=== PATIENT | female | born 1935 | race Caucasian/White ===

== ENCOUNTER 2016-06-07 18:32 | Emergency (ER) ==
[2016-06-07 18:32] VITALS: BMI 33.9
[2016-06-07 18:40] VITALS: BP 146/67; TEMP 99.1
[2016-06-07] MEDS ORDERED: DUONEB NEB STA (18:50)
--- NOTE | 2016-06-07 20:11 | ED.PDOC ---
General ED Provider: Dr. ES MONTILLA-ER Chief Complaint: Respiratory Complaint Stated Complaint: sheila been coughing up stuff for mos--its yellow --no fever, sob or hemoptysis Time Seen by Physician: 19:00 Mode of Arrival: Walk-In Information Source: Patient Exam Limitations: No limitations Primary Care Provider: CRISTÓBAL FORRESTER Nursing and Triage Documentation Reviewed and Agree: Yes Respiratory Complaint Exam - Respiratory Complaint/Exam Onset/Duration: 2mos Symptoms Are: Still present Timing: Intermittent Initial Severity: Mild Current Severity: Mild Location: Chest Character: Reports: Productive cough Aggravating: Reports: URI Alleviating: Reports: None Associated Signs and Symptoms: Denies: Rapid breathing, Dyspnea, Fever, Chills, Chest pain, Pleuritic chest pain, Wheezing, Hemoptysis, Dizziness, Calf pain, Calf swelling, URI, Nasal congestion, Hoarseness, Sinus discomfort, Vomiting, Sore throat, Weight loss, Decreased oral intake, Increased thirst, Increased appetite, Increased urination Related History: Reports: Similar episode History of Healthcare-Acquired Pneumonia: No Related Surgical History: Reports: None Pulmonary Embolism Risk Factors: None Status Asthmaticus Risk Factors: Reports: None Home Oxygen Use: No Recent Stress Test: No Recent Echo/LV Function: No Current Antibiotic Use: No Current Asthma Medication Use: No Respiratory Distress: None Inadequate Respiratory Effort: No Dysphagia Present: No Stridor Present: No JVD Present: No Accessory Muscle Use: No Retractions: Not Present Diminished Breath Sounds: No Sinus Tenderness: None Grunting Respirations: Yes Kussmaul Respirations: Yes Differential Diagnoses: Bronchitis Review of Systems - Review Of Systems Constitutional: Reports: No symptoms Eyes: Reports: No symptoms Ears, Nose, Mouth, Throat: Reports: No symptoms Respiratory: Reports: Cough Cardiac: Reports: No symptoms GI: Reports: No symptoms : Reports: No symptoms Musculoskeletal: Reports: No symptoms Skin: Reports: No symptoms Neurological: Reports: No symptoms Endocrine: Reports: No symptoms Hematologic/Lymphatic: Reports: No symptoms All Other Systems: Reviewed and Negative Past Medical History - Past Medical History Endocrine: Reports: DM 2 Cardiovascular: Reports: Hypertension Respiratory: Reports: None Hematological: Reports: None Gastrointestinal: Reports: None Genitourinary: Reports: None Neuro/Psych: Reports: CVA Musculoskeletal: Reports: Arthritis Cancer: Reports: None Last Menstrual Period: NONE - Surgical History General Surgical History: Reports: Hysterectomy, Cholecystectomy, Orthopedic ( Bilatearl Knee replacement, Right shoulder replacement ) - Family History Family History: Reports: Unknown - Social History Smoking Status: Never smoker Hx Substance Use: No Lives: With family Physical Exam - Physical Exam Appearance: Well-appearing, No pain distress, Well-nourished Eyes: BELLE ENT: Ears normal, Nose normal, Oropharynx normal Respiratory: Airway patent, Crackles Cardiovascular: RRR, Pulses normal, No rub, No murmur GI/: Soft, Nontender, No masses, Bowel sounds normal, No Organomegaly Musculoskeletal: Normal strength Skin: Warm, Dry, Normal color Neurological: Sensation intact, Motor intact, Reflexes intact, Cranial nerves intact, Alert, Oriented Psychiatric: Affect appropriate, Mood appropriate Critical Care Note - Critical Care Note Total Time (mins): 0 Course - Course Orders, Labs, Meds: Lab Review 06/07/16 18:50 D-Dimer 1.10 B-Natriuretic Peptide 203 H Orders Category Date Time Status NEBULIZER TREATMENT Stat CARDIO 06/07/16 18:50 Completed B-TYPE NATRIURETIC PEPTIDE Stat LAB 06/07/16 18:50 Completed D-DIMER Stat LAB 06/07/16 18:50 Completed Ipratropium/Albuterol Neb [Duoneb] MEDS 06/07/16 18:50 Discontinued 1 vial NEB ONCE STA Medications Discontinued Medications Generic Name Dose Route Start Last Admin Trade Name Freq PRN Reason Stop Dose Admin Albuterol/Ipratropium 1 vial 06/07/16 18:50 06/07/16 18:59 Duoneb NEB 06/07/16 18:51 1 vial ONCE STA Administration Vital Signs: Temp Pulse Resp BP Pulse Ox 06/07/16 18:32 99.1 F 87 20 146/67 H 96 Departure - Departure Time of Disposition: 20:10 Disposition: HOME SELF-CARE Discharge Problem: Bronchitis Instructions: Acute Bronchitis (ED) Condition: Good Pt referred to PMD for follow-up: Yes Additional Instructions: cipro 500mg bid x 7 days..use prednisone and mucinex give to you by dr forrester--f/ u dr forrester next week Allergies/Adverse Reactions: Allergies clindamycin Adverse Reaction (Verified 06/07/16 18:37) erythromycin base [Erythromycin Base] Adverse Reaction (Verified 06/07/16 18:37) meperidine HCl [From Demerol] Adverse Reaction (Verified 06/07/16 18:37) Penicillins Adverse Reaction (Verified 06/07/16 18:37) Home Medications: Ambulatory Orders Aspirin [Aspirin EC] 81 mg PO DAILY 07/05/13 Chromium Picolinate 200 mcg PO DAILY 07/05/13 Esomeprazole Magnesium [Nexium] 40 mg PO DAILY 07/05/13 Glimepiride [Amaryl] 4 mg PO DAILY 07/05/13 Metformin HCl [Metformin HCl ER] 500 mg PO BID 07/05/13 Potassium Chloride [Klor-Con 10] 1 tab PO DAILY 07/05/13 Sitagliptin Phosphate [Januvia] 50 mg PO DAILY 07/05/13 Solifenacin Succinate [Vesicare] 5 mg PO DAILY 07/05/13 Vit C/Vit E/Lutein/Min/[place]-3 [Ocuvite Softgel] 1 tab PO DAILY 07/05/13 Meclizine HCl [Antivert] 25 mg PO BID 12/28/14 Pravastatin Sodium [Pravachol] 20 mg PO BEDTIME 12/28/14 Telmisartan/Hydrochlorothiazid [Micardis Hct 80-12.5 mg Tablet] 1 tab PO DAILY 12/29/14 Verapamil HCl [Verapamil ER] 240 mg PO DAILYWM 12/29/14 Bisoprolol Fumarate/Hctz [Ziac 2.5-6.25 mg] 1 tab PO DAILY 06/07/16 Celecoxib [Celebrex] 240 mg PO PRN PRN 06/07/16 Cholecalciferol (Vitamin D3) [Vitamin D] 1,000 unit PO DAILY 06/07/16 Furosemide [Lasix Tab] 10 mg PO DAILY 06/07/16 Multivit-Min/FA/Lycopene/Lut [Centrum Silver Tablet] 1 each PO DAILY 06/07/16 [place]-3 Fatty Acids/Fish Oil [Fish Oil 1,000 mg Capsule] 2 each PO BID 06/07/16 Verapamil HCl [Verapamil ER] 120 mg PO DAILY 06/07/16 Disposition Discussed With: Patient
== END 2016-06-07 20:28 | disposition home or self-care (01) ==
LOC: ED 18:32
DX: J20.9 Acute bronchitis, unspecified (principal); E11.9 Type 2 diabetes mellitus without complications; I10 Essential (primary) hypertension; Z79.899 Other long term (current) drug therapy; Z86.73 Personal history of transient ischemic attack (TIA), and cerebral infarction without residual deficits
CPT/HCPCS: 36415; 83880; 85379; 94640; 99283

== ENCOUNTER 2016-06-18 08:37 | Outpatient (CLI) ==
--- NOTE | 2016-06-18 09:48 | DI ---
EXAM: Upper GI series HISTORY: Dysphasia COMPARISON: None FINDINGS: Upper GI series was performed using barium. Tertiary contractions are noted in the esopha donny. Esophageal caliber is normal. No filling defect is seen in the esophagus. Very small hiatal her reynold. Small reflux suggested when the patient changed positions. The stomach appears grossly normal w ithout mass lesion or ulcer. Small duodenal diverticulum. A 13 mm barium pill was administered and p assed freely into the stomach. IMPRESSION: Very small hiatal hernia. Small reflux suggested. Tertiary contractions,may relate to p resbyesophagus and/or dysmotility. A 13 mm barium pill was administered and passed freely into the s tomach. Small duodenal diverticulum.
== END 2016-06-18 08:38 ==
LOC: RAD 08:37
PROVIDERS: ATTEND Internal Medicine
DX: R13.10 Dysphagia, unspecified (principal)

== ENCOUNTER 2016-09-03 06:30 | Outpatient (CLI) ==
--- NOTE | 2016-09-03 08:54 | US ---
EXAM: Bilateral carotid artery Doppler History: Dizziness. Comparison: Carotid Doppler 04/16/2015 Technique: Multiple sonographic images through the bilateral internal carotid arteries were obtaine d. Color duplex Doppler was used to interrogate vascular flow. Findings: The right ICA peak systolic velocity is within normal limits measuring 1.0. Meters per second. The right ICA/cca PSV ratio is normal at 1.5. The right vertebral artery is patent and demonstrates ant egrade flow. Durbin scale images demonstrate mild to moderate plaque buildup within the right interna l carotid artery. The left ICA peak systolic velocities within normal limits measuring 0.8 meters per second. The lef t ICA/cca PSV ratio is normal at 1.1. The left vertebral artery is patent and demonstrates antegrad e flow. Durbin-scale images demonstrate mild to moderate plaque buildup within the left internal rice tid artery. Impression: No significant hemodynamic stenosis of the bilateral internal carotid arteries.
--- NOTE | 2016-09-03 12:19 | ECHO2D ---
Date of Exam: 09/03/16 Ordering Physician: CRISTÓBAL DOS SANTOS Reason for Echo: CARDIOMEGALY, SYSTOLIC MURMUR, HYPERTENSION, LVH M-Mode Normal Adult Results LV Dimensions Normal Adult Results AoV Opening excursions >1.6 >1.6 LVEDD-base- 3.5-5.8 5.0 Ao root dimensions 2.0-3.7 3.5 LVESD-base- 3.1-4.6 L. Atrium dimensions 1.9-3.8 4.6 Post. Wall thickness 0.8-1.1 1.2 IV septum (thickness) 0.7-1.2 1.3 Post. Wall excursion 0.72-1.3 NORMAL Septal motion NORMAL Systolic motion R. Ventricular cavity 1.5-2.0 NORMAL LVEF 60% 50% Paradoxical septal wall motion NORMAL 2-D : ENLARGED LEFT ATRIAL CAVITY--NORMAL VALVES, NORMAL LEFT VENTRICLE CAVITY, NO EFFUSION, NO THROMBUS M-MODE: MV: MILD ANNULUS CALCIFICATION AV: NORMAL TV: NORMAL PV: CHAMBER SIZE: ENLARGED LEFT ATRIAL CAVITY WALL MOTION: NORMAL PERICARDIUM: NORMAL INTERPRETATION: 1. LEFT VENTRICLE HYPERTROPHY 2. ENLARGED LEFT ATRIAL CAVITY 3. NORMAL LEFT VENTRICLE CONTRACTILITY 4. CALCIFIC MITRAL VALVE ANNULUS MTDD
== END 2016-09-03 06:31 | disposition home or self-care (01) ==
LOC: CAR 06:30
PROVIDERS: ATTEND Internal Medicine
DX: R42 Dizziness and giddiness (principal); R06.02 Shortness of breath; I10 Essential (primary) hypertension; I51.7 Cardiomegaly; R01.1 Cardiac murmur, unspecified
CPT/HCPCS: 93005; 93010

== ENCOUNTER 2017-06-23 14:56 | Inpatient (IN) ==
[2017-06-23] MEDS ORDERED: NITROSTAT SL PRN (17:04)
[2017-06-23] MEDS ORDERED: MORPHINE 4 MG/ML VIAL IVP PRN (17:04)
[2017-06-23] MEDS ORDERED: ATROPINE SULFATE PFS IVP PRN (17:04)
[2017-06-23] MEDS ORDERED: VISTARIL INJ IM PRN (17:04)
[2017-06-23] MEDS ORDERED: TYLENOL PO PRN (17:04)
[2017-06-23] MEDS: ZITHROMAX PO SCH (17:54)
[2017-06-23] MEDS: DEXTROSE 5%-1/2NS IV SOLUTION 1,000 ML IV SCH (17:54)
[2017-06-23] MEDS: SOLU-CORTEF 250 MG IVP SCH ×2 (17:55→20:53)
[2017-06-23 18:16] VITALS: BMI 34.2
[2017-06-23] MEDS: XOPENEX 1.25 MG NEB SCH ×2 (19:05→23:25)
[2017-06-23] MEDS ORDERED: PRAVACHOL ONE (20:41)
[2017-06-23] MEDS ORDERED: GLUCOPHAGE ONE (20:41)
[2017-06-23] MEDS: PRAVACHOL PO SCH (20:53)
[2017-06-23] MEDS: HUMULIN R SUBCUT PRN (20:54)
[2017-06-23] MEDS ORDERED: VERAPAMIL HCL 120 MG PO SCH (21:00)
[2017-06-23] MEDS ORDERED: NON-FORMULARY MEDICATION (Metformin Hcl [Metformin Hcl Er] 500 MG) PO SCH (21:00)
[2017-06-23] MEDS ORDERED: POTASSIUM GLUCONATE 600 MG PO SCH (21:00)
--- NOTE | 2017-06-24 03:29 | DI ---
EXAM: Portable chest HISTORY: Shortness of breath COMPARISON: Two-view chest 05/17/2016 FINDINGS: The cardiomediastinal silhouette is stable. The lungs are clear bilaterally. There is a right-sided reverse shoulder arthroplasty. IMPRESSION: No evidence of active pulmonary disease.
[2017-06-24] MEDS: SOLU-CORTEF 250 MG IVP SCH ×3 (04:13→20:20)
[2017-06-24] MEDS: XOPENEX 1.25 MG NEB SCH ×4 (05:12→23:55)
[2017-06-24] MEDS: DEXTROSE 5%-1/2NS IV SOLUTION 1,000 ML IV SCH ×2 (05:15→19:20)
[2017-06-24] MEDS: HUMULIN R SUBCUT PRN ×4 (05:15→20:20)
[2017-06-24] MEDS ORDERED: CALAN SR PO SCH ×2 (08:00→21:00)
[2017-06-24] MEDS ORDERED: NON-FORMULARY MEDICATION (Verapamil Hcl [Verapamil Er] 240 MG) PO SCH (08:00)
[2017-06-24] MEDS: ANTIVERT PO SCH (09:20)
[2017-06-24] MEDS: ASPIRIN EC PO SCH (09:20)
[2017-06-24] MEDS: GLUCOPHAGE PO SCH ×2 (09:21→16:42)
[2017-06-24] MEDS: HYDROCHLOROTHIAZIDE PO SCH (09:22)
[2017-06-24] MEDS: JANUVIA PO SCH (09:23)
[2017-06-24] MEDS: LASIX TAB PO SCH (09:23)
[2017-06-24] MEDS: MICARDIS PO SCH (09:24)
[2017-06-24] MEDS: ZITHROMAX PO SCH (09:25)
[2017-06-24] MEDS: POTASSIUM GLUCONATE 600 MG PO SCH ×2 (09:26→20:21)
--- NOTE | 2017-06-24 09:27 | PCM.PROG ---
Attending Provider: ATTENDING PROVIDER: Dr. CRISTÓBAL DOS SANTOS DATE OF SERVICE: 06/24/17 SUBJECTIVE: This 82 year old WHITE/ F was hospitalized 06/23/17 with shortness of breath, pleuritic type of pain, chest heaviness, pneumontiis of nearly 2 weeks duration improved. She is feeling better. Chest tightness less pronounced. REVIEW OF SYSTEMS: CONSTITUTIONAL: Fatigue. No night sweats. No malaise, lethargy. No fever or chills. HEENT: Eyes: No visual changes. No eye pain. No eye discharge. ENT: No runny nose. No epistaxis. No sinus pain. No odynophagia. No congestion. RESPIRATORY: Mild cough, no congestion. No hemoptysis. No shortness of breath. CARDIOVASCULAR: No angina symptoms. No CHF symptoms. No atypical chest pain for CAD. No palpitations. No orthopnea.. GASTROINTESTINAL: No abdominal pain. No nausea or vomiting. No diarrhea or constipation. No hematemesis. No hematochezia. GENITOURINARY: No urgency. No frequency. No dysuria. No hematuria. No obstructive symptoms. No discharge. No pain. No significant abnormal bleeding. MUSCULOSKELETAL: No musculoskeletal pain; no joint swelling. NEUROLOGICAL: Awake, alert, oriented to time, place and person. No headache. No neck pain. No syncope. No seizures. No dizziness. PSYCHIATRIC: Not anxious. No depression. No suicidal thoughts. No homicidal thoughts. SKIN: No rash. No lesions. No wounds. ENDOCRINE: No unexplained weight loss. No weight gain. HEMATOLOGIC/LYMPHATIC: No anemia. No purpura. No petechiae. No prolonged or excessive bleeding. No palpable lymph nodes. PHYSICAL EXAMINATION: GENERAL: The patient is awake, alert and oriented, lying in bed in no distress. VITAL SIGNS: Temperature 97.7 F, Pulse 88, Respiratory Rate 16, BP 135/67, Pulse Ox 99% HEENT: Head normocephalic, atraumatic. Eyes: Extraocular muscles are intact. Pupils are equal, round and reactive to light and accommodation. Ears: No lesions. Nose appeared normal. Throat: No exudate or erythema. NECK: Supple. No JVD, no carotid bruit. No lymphadenopathy or thyromegaly. LUNGS: Decreased breath sounds. Clear to auscultation. Percussion note normal. Chest symmetrical. HEART: S1, S2, no S3. No murmurs. No cyanosis or clubbing. No ascites. Pulses: Dorsalis pedis and posterior tibial pulses +1 to +2 both sides. ABDOMEN: Soft. Non-tender. Bowel sounds active. No CVA tenderness. No mass felt. EXTREMITIES: No edema. Full range of motion of all extremities, equal. NEUROLOGIC: No focal deficit. Cranial nerves II through XII are grossly intact. No headache, no double vision or headache. SKIN: Warm and dry. Intact. Turgor-better. LYMPHATIC: No palpable lymph nodes/no lymphedema. MUSCULOSKELETAL: Normal joints with no swelling. Muscle tone is normal. LAB REVIEW: 06/24/17 01:10 06/24/17 01:10 06/24/17 04:15: Urine Color Yellow, Urine Clarity Clear, Urine pH 6.0, Ur Specific [place] 1.020, Urine Protein Negative, Urine Glucose (UA) 2+, Urine Ketones Negative, Urine Blood Negative, Urine Nitrite Negative, Urine Bilirubin Negative, Urine Urobilinogen 0.2, Ur Leukocyte Esterase Negative, Urine Microscopic RBC Cancelled, Urine Microscopic WBC Cancelled, Ur Squamous Epith Cells Cancelled, Ur Transition Epith Cell Cancelled, Ur Renal Epithelial Cell Cancelled, Calcium Phosphate Cryst Cancelled, Calcium Oxalate Crystal Cancelled , Cystine Crystals Cancelled, Uric Acid Crystals Cancelled, Triple Phos Crystals Cancelled, Tyrosine Crystals Cancelled, Other Crystals Cancelled, Amorphous Sediment Cancelled, Urine Bacteria Cancelled, Fatty Casts Cancelled, Hyaline Casts Cancelled, Granular Casts Cancelled, Fine Granular Casts Cancelled , Coarse Granular Casts Cancelled, Waxy Casts Cancelled, RBC Casts Cancelled, Other Casts Cancelled, Urine Starch Cancelled, Urine Mucus Cancelled, Urine Trichomonas Cancelled, Urine Yeast Cancelled, Urine Sperm Cancelled, Ur Oval Fat Bodies Cancelled 06/24/17 01:10: Sodium 134 L, Potassium 4.0, Chloride 99, Carbon Dioxide 23, Anion Gap 16.0, BUN 24 H, Creatinine 1.03, Estimated GFR (MDRD) 51.00, BUN/ Creatinine Ratio 23.30, Glucose 305 H D, Calcium 8.8, Total Bilirubin 0.5, AST 26, ALT 29, Alkaline Phosphatase 51 L, Total Protein 6.2, Albumin 3.4, Globulin 2.8, Albumin/Globulin Ratio 1.21 06/24/17 01:10: WBC 4.47 L, RBC 3.98 L, Hgb 11.8 L, Hct 33.9 L, MCV 85.2, MCH 29.6, MCHC 34.8, RDW Coeff of Chuy 13.4, Plt Count 150, Immature Gran % (Auto) 1.3, Neut % (Auto) 80.0, Lymph % (Auto) 12.5, [place] % (Auto) 6.0, Eos % (Auto) 0.0, Baso % (Auto) 0.2, Immature Gran # (Auto) 0.1, Neut # 3.6, Lymph # 0.6, [place] # 0.3 L, Eos # 0.0, Baso # 0.0 06/24/17 01:10: Total Creatine Kinase 142, CK-MB (CK-2) 4.6 H, CK-MB (CK-2) % 3.58789, Troponin I 0.0110 06/23/17 17:33: WBC 6.65, RBC 4.27, Hgb 12.4, Hct 35.1 L, MCV 82.2, MCH 29.0, MCHC 35.3, RDW Coeff of Chuy 13.3, Plt Count 162, Immature Gran % (Auto) 0.3, Neut % (Auto) 77.8, Lymph % (Auto) 13.5, [place] % (Auto) 8.4, Eos % (Auto) 0.0, Baso % (Auto) 0.0, Immature Gran # (Auto) 0.0, Neut # 5.2, Lymph # 0.9, [place] # 0.6, Eos # 0.0, Baso # 0.0 06/23/17 17:33: Sodium 135 L, Potassium 4.2, Chloride 100, Carbon Dioxide 24, Anion Gap 15.2, BUN 24 H, Creatinine 1.06, Estimated GFR (MDRD) 49.00, BUN/ Creatinine Ratio 22.64, Glucose 209 H, Calcium 9.0, Total Bilirubin 0.6, AST 28 , ALT 30, Alkaline Phosphatase 51 L, Total Creatine Kinase 174, CK-MB (CK-2) 5.5 H*, CK-MB (CK-2) % 3.40483, Troponin I 0.0140, Total Protein 6.6, Albumin 3.6, Globulin 3.0, Albumin/Globulin Ratio 1.20 ASSESSMENT: 1. Flu type of symptoms with pleuritic pain, chest pain seems to be better. EKG - sinus rhythm no acute changes. PLAN: 1. A1C - blood sugar 305 likely from steroid effect 2. Continue steroids, antibiotics and nebs. 3. The patient is to have echo done to evaluate LV function. She has been complaining of shortness of breath for the past couple of months likely from sedentary lifestyle with flu type of symptoms off and on. Will evaluate LV function. 4. Zithromax p.o. Plan and coordination of the patient's care discussed in the presence of Software Development Manager and nurse. CONDITION: Stable SCRIBED BY: CASSIDY OCAMPO, Dye House Wheel Operator scribed while in presence of service performed by Dr. CRISTÓBAL DOS SANTOS on 06/24/17 ([id number])
[2017-06-24] MEDS ORDERED: CALAN SR PO ONE (13:00)
--- NOTE | 2017-06-24 15:29 | HP ---
DATE OF SERVICE: 06/23/17 REASON FOR HOSPITALIZATION/HISTORY OF PRESENT ILLNESS: Headache back, Chest feeling tight-coughing very litter dry/hacky. Pain with coughing. PAST MEDICAL HISTORY: Generalized Osteoarthritis Bilateral hip pain Systolic murmur Dysphagia Diabetes Mellitus type 2 Hypertension/LVH Obesity Dyslipidemia History of blood clots after surgery PAST SURGICAL HISTORY: Bladder with mesh Uterus Gallbladder Bilateral knee replacement Right shoulder REVIEW OF SYSTEMS: CONSTITUTIONAL: No fever, Fatigue. HEENT: Sinus drainage, no sore throat. RESPIRATORY: Cough, no congestion. CARDIOVASCULAR: Atypical chest pain for coronary artery disease. No angina, CHF symptoms, palpitations or shortness of breath. GASTROINTESTINAL: No melena or abdominal pain. No GERD. GENITOURINARY: No hematuria, no prostatism, no polyuria. Decreased appetite. AUTOMATION ANALYST: No blackout, no dizziness, Headache, no double vision. MUSCULOSKELETAL: Osteoarthritis pain, no joint swelling. ENDOCRINE: No weight loss, no weight gain. SKIN: Not dry, no rash. PSYCHIATRIC: Anxious, no depression, no suicidal thoughts, no homicidal thoughts. SOCIAL HISTORY: Marital Status: . Alcohol Usage: No. Tobacco Usage: No. FAMILY HISTORY: Father Mother Sister 1 MEDICATIONS: Metformin 500mg twice a day Telmisartan 80/12.5 PO daily Verapamil 240mg Am and 1/2 PM Januvia 100mg PO daily Lasix 20PO daily Glimepiride 4mg PO daily Ziac 25mg 1/2 daily PRN Pravastatin 20mg PO daily Nexium 40mg PO PM Fish oil 1000mg AM and PM Vitamins PO daily Aspirin 81mg PO daily Celebrex 200mg three times daily Antivert 25mg QAM PRN Z-Ramon Prednisone 10mg twice a day Myrbetriq 25mg PO QPM Potassium 600mg PO twice a day ALLERGIES: Clindamycin Erythromycin Meperidine Penicillins PHYSICAL EXAMINATION: V/S: Pulse 74, blood pressure 120/60, temperature 97.9 and pulse ox 98%. GENERAL APPEARANCE: Oriented times three. HEENT: Normal. Yellow sinus drainage. Pale. NECK: No JVP, no bruits. RESPIRATORY: Lungs are decreased breath sounds. CARDIOVASCULAR: S1, S2, no S3, I/ murmurs. No cyanosis, clubbing. No ascites. GI/ABDOMEN: Tenderness. Bowel sounds are active. EXTREMITIES: Edema, pulses +1, equal. AUTOMATION ANALYST: Deep tendon reflexes, sensory, motor and gait all normal. RECTAL: Dr. Cruz 01/27/PELVIC: Dr. Mares 10/31 Theresa Mammogram. ASSESSMENT: 1. Acute pneumonitis 2. Shortness of breath 3. Pleuritic pain 4. Chest tightness 5. Bilateral hip pain 6. Generalized osteoarthritis 7. Sciatica 8. Cardiomegaly 9. Systolic murmur 10.Dysphagia 11.Diabetes mellitus 12.Hypertension/LVH 13.Obesity 14.Dyslipidemia 15.Left knee replacement PLAN: 1. Routine telemetry orders 2. Chest x-ray 3. CBC/CMP daily 4. Solu-Cortef 125mg IV Q 8 hours 5. Zithromax 500mg PO daily x 3 days 6. Xopenex 1.25mg scheduled Q 6 hours 7. Oxygen PRN 8. Continue home medications 9. D5 1/2 normal saline @ 75cc an hour 10.Echo 2D M mode 11.Accu-checks with sliding scale ADDENDUM: On 06/23/17, admission, hemoglobin 12.4, hematocrit 35, WBC 6,000, normal differential. Creatinine 1, BUN 24. CK-MB 5.5 with CK 174 normal. Liver profile normal. Potassium normal. TIME SPENT: More than 70 minutes. MTDD
[2017-06-24] MEDS ORDERED: NON-FORMULARY MEDICATION (Esomeprazole Magnesium [Nexium] 40 MG) PO SCH (17:00)
[2017-06-24] MEDS ORDERED: NON-FORMULARY MEDICATION (Glimepiride [Amaryl] 4 MG) PO SCH (17:00)
[2017-06-24] MEDS ORDERED: MYRBETRIQ PO SCH (17:00)
[2017-06-24] MEDS ORDERED: ZIAC 2.5-6.25 MG PO SCH (17:00)
[2017-06-24] MEDS ORDERED: AMARYL PO SCH (17:00)
[2017-06-24] MEDS ORDERED: PROTONIX PO SCH (17:00)
[2017-06-24] MEDS: PRAVACHOL PO SCH (20:21)
[2017-06-25] MEDS: XOPENEX 1.25 MG NEB SCH ×2 (05:45→11:17)
[2017-06-25] MEDS: LASIX TAB PO SCH (05:53)
[2017-06-25] MEDS: SOLU-CORTEF 250 MG IVP SCH (05:54)
[2017-06-25] MEDS: HUMULIN R SUBCUT PRN (05:54)
[2017-06-25] MEDS ORDERED: CALAN SR PO SCH (08:00)
[2017-06-25] MEDS ORDERED: DECADRON 4 MG/ML SDV IM STA (08:09)
[2017-06-25] MEDS ORDERED: K-DUR PO STA (08:09)
[2017-06-25] MEDS: ANTIVERT PO SCH (09:07)
[2017-06-25] MEDS: ASPIRIN EC PO SCH (09:07)
[2017-06-25] MEDS: GLUCOPHAGE PO SCH (09:09)
[2017-06-25] MEDS: HYDROCHLOROTHIAZIDE PO SCH (09:10)
[2017-06-25] MEDS: JANUVIA PO SCH (09:10)
[2017-06-25] MEDS: MICARDIS PO SCH (09:11)
[2017-06-25] MEDS: ZITHROMAX PO SCH (09:12)
[2017-06-25] MEDS: POTASSIUM GLUCONATE 600 MG PO SCH (09:12)
[2017-06-25 10:03] VITALS: BP 153/75; TEMP 97.5
--- NOTE | 2017-06-25 10:24 | CM.DICTOOL ---
ADMISSION: 06/23/17 14:56 DISCHARGE: 2017 DATE OF SERVICE: 06/25/17 FINAL DIAGNOSIS ACUTE PNEUMONITIS INFLUENZA A PLEURITIC CHEST PAIN DIABETES, TYPE 2 HYPERTENSION DYSLIPIDEMIA GERD CKD, STAGE 2 RHEUMATOID ARTHRITIS BILATERAL TKR RIGHT SHOULDER REPLACEMENT CHOLECYSTECTOMY LAST VITALS Temp Pulse Resp BP Pulse Ox 97.9 F 70 18 144/89 H 96 06/25/17 05:38 06/25/17 05:38 06/25/17 05:38 06/25/17 05:38 06/25/17 05:38 ACTIVE HOME MEDICATIONS Aspirin (Aspirin Ec) 81 mg PO DAILYWM [facility] Last Admin: 06/25/17 09:07 Dose: 81 mg Chromium Picolinate 200 mcg PO Q PM Last Admin: Bisoprolol Fumarate/HCTZ (Ziac 2.5-6.25 Mg) 0.5 tab PO QPM [facility] Last Admin: 06/24/17 16:40 Dose: 0.5 tab Furosemide (Lasix Tab) 20 mg PO QDAC [facility] Last Admin: 06/25/17 05:53 Dose: 20 mg Glimepiride (Amaryl) 2 mg PO QPM [facility] Last Admin: 06/24/17 16:42 Dose: 2 mg Meclizine HCl (Antivert) 25 mg PO QAM [facility] Last Admin: 06/25/17 09:07 Dose: 25 mg Metformin HCl (Glucophage) 500 mg PO BIDWM [facility] Last Admin: 06/25/17 09:09 Dose: 500 mg Mirabegron (Myrbetriq) 25 mg PO QPM [facility] Last Admin: 06/24/17 16:41 Dose: 25 mg Non-Formulary Medication (Potassium Gluconate [Potassium]) 600 mg PO BID [facility] Last Admin: 06/25/17 09:12 Dose: Not Given Esomeprazole Magnesium (Nexium) 40 mg PO QPM [facility] Last Admin: 06/24/17 16:42 Dose: 40 mg Pravastatin Sodium (Pravachol) 20 mg PO BEDTIME [facility] Last Admin: 06/24/17 20:21 Dose: 20 mg Sitagliptin Phosphate (Januvia) 100 mg PO DAILY [facility] Last Admin: 06/25/17 09:10 Dose: 100 mg Telmisartan/Hydrochlorothiazide (Micardis-HCT 80-12.5)mg PO DAILY [facility] Last Admin: 06/25/17 09:11 Dose: 80 mg Verapamil HCl (Calan Sr) 120 mg PO BEDTIME [facility] Last Admin: 06/24/17 20:21 Dose: 120 mg Verapamil HCl (Calan Sr) 240 mg PO DAILYWM [facility] Last Admin: 06/25/17 09:07 Dose: 240 mg [place]-3 Fatty Acids/Fish Oil 1000 mg Capsule 1 BID Last Admin: Multi-Vitamin (Centrum Silver) 1 PO at Bedtime Last Admin: ALLERGIES clindamycin Adverse Reaction (Verified 06/07/16 18:37) erythromycin base [Erythromycin Base] Adverse Reaction (Verified 06/07/16 18:37) meperidine HCl [From Demerol] Adverse Reaction (Verified 06/07/16 18:37) Penicillins Adverse Reaction (Verified 06/07/16 18:37) NEW PRESCRIPTIONS: K-Tab 20 meq TID for 3 days, then resume previous Potassium Gluconate Prednisone 20 mg daily for 3 days, then 10 mg daily for 3 days Mucinex 600 mg BID ( may obtain over the counter) SMOKING: Not Applicable DISEASE SPECIFIC EDUCATION: Steroids, short term use and risk of GI irritationa Influenza A Blood sugar increase while on steroids Hydration, rest LAB REVIEW: 06/25/17 04:30 06/25/17 04:30 06/25/17 08:30: Influenza A (Rapid) Positive by naat H, Influenza B (Rapid) Negative by naat 06/25/17 04:30: Sodium 138, Potassium 3.1 L, Chloride 99, Carbon Dioxide 27, Anion Gap 15.1, BUN 18, Creatinine 0.82, Estimated GFR (MDRD) 66.00, BUN/ Creatinine Ratio 21.95, Glucose 223 H, Calcium 8.9, Total Bilirubin 0.5, AST 23 , ALT 23, Alkaline Phosphatase 50 L, Total Protein 6.2, Albumin 3.3 L, Globulin 2.9, Albumin/Globulin Ratio 1.14 06/25/17 04:30: WBC 5.63, RBC 4.23, Hgb 12.4, Hct 35.7 L, MCV 84.4, MCH 29.3, MCHC 34.7, RDW Coeff of Chuy 13.6, Plt Count 155, Immature Gran % (Auto) 0.4, Neut % (Auto) 70.0, Lymph % (Auto) 21.1, [place] % (Auto) 8.5, Eos % (Auto) 0.0, Baso % (Auto) 0.0, Immature Gran # (Auto) 0.0, Neut # 3.9, Lymph # 1.2, [place] # 0.5, Eos # 0.0, Baso # 0.0 PLAN: Discharge home Diet: Consistent Carbohydrates, increase fluids Activity: Gradually resume as tolerated. Please stay indoors until seen next Thursday in the office. Avoid crowds. Rest. Continue home medications as listed on nursing discharge information sheet, except do not take your home potassium for now. Continue to check your blood sugars at least twice daily. An appointment is scheduled with Dr. Card/Ewa Carbajal APRN on at 2:15 pm Ms. Parks is alert and oriented x 3. She is independent with Activities of Daily Living. She is ambulatory without use of an assistive device or assistance from nursing staff. She denies chest pain or tightness. She reports a loose cough that is productive of yellow sputum today. She has been afebrile. No abdominal pain or nausea reported. Meal intakes are good at 50-100%. Accu-check readings have been in the 200's. Skin is intact and free of rashes, irritation of decubitus ulcers. Placido Card MD Ewa Carbajal APRN
--- NOTE | 2017-06-26 13:05 | ECHO2D ---
Date of Exam: 06/24/17 Ordering Physician: DR. CRISTÓBAL DOS SANTOS Room #: 103 Reason for Echo: MURMUR, SHORT OF AIR M-Mode Normal Adult Results LV Dimensions Normal Adult Results AoV Opening excursions >1.6 >1.6 LVEDD-base- 3.5-5.8 5.1 Ao root dimensions 2.0-3.7 3.5 LVESD-base- 3.1-4.6 L. Atrium dimensions 1.9-3.8 4.5 Post. Wall thickness 0.8-1.1 1.1 IV septum (thickness) 0.7-1.2 1.2 Post. Wall excursion 0.72-1.3 NORMAL Septal motion NORMAL Systolic motion R. Ventricular cavity 1.5-2.0 NORMAL LVEF 60% 54% Paradoxical septal wall motion NORMAL 2-D : ENLARGED LEFT ATRIAL CAVITY, NORMAL LEFT VENTRICULAR CONTRACTILITY-- NORMAL VALVES-NO EFFUSION, NO THROMBUS M-MODE: MV: NORMAL AV: NORMAL TV: NORMAL PV: CHAMBER SIZE: ENLARGED LEFT ATRIAL CAVITY WALL MOTION: NORMAL PERICARDIUM: NORMAL INTERPRETATION: 1. 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 NORMAL LEFT VENTRICULAR CONTRACTILITY 3. NORMAL VALVES MTDD
--- NOTE | 2017-06-30 09:59 | PN ---
DATE OF SERVICE: 06/25/17 SUBJECTIVE: 82 year old white female hospitalized with acute pneumonitis, bronchitis, pleuritic pain, chest tightness. The patient has no evidence of coronary insufficiency or HI. Her cardiac workup is negative. So far echo shows LV contractility, borderline LVH. The patient's flu type of symptoms with bronchitis has been resolving very well. REVIEW OF SYSTEMS: CONSTITUTIONAL: No night sweats. No fatigue, malaise, lethargy. No fever or chills. HEENT: Eyes: No visual changes. No eye pain. No eye discharge. ENT: No runny nose. No epistaxis. No sinus pain. No sore throat. No odynophagia. No congestion. RESPIRATORY: Mild cough, no congestion. No hemoptysis. No shortness of breath. CARDIOVASCULAR: No angina symptoms. No CHF symptoms. No atypical chest pain for CAD. No palpitations. No orthopnea. No PND. GASTROINTESTINAL: No abdominal pain. No nausea or vomiting. No diarrhea or constipation. No hematemesis. No hematochezia. GENITOURINARY: No urgency. No frequency. No dysuria. No hematuria. No obstructive symptoms. No discharge. No pain. No significant abnormal bleeding. MUSCULOSKELETAL: No musculoskeletal pain; no joint swelling. NEUROLOGICAL: No headache. No neck pain. No syncope. No seizures. No dizziness. PSYCHIATRIC: Not anxious. No depression. No suicidal thoughts. No homicidal thoughts. SKIN: No rash. No lesions. No wounds. ENDOCRINE: No unexplained weight loss. No weight gain. HEMATOLOGIC/LYMPHATIC: No anemia. No purpura. No petechiae. No prolonged or excessive bleeding. No palpable lymph nodes. PHYSICAL EXAMINATION: GENERAL: The patient is oriented to time, place and person. VITAL SIGNS: Temperature 97.9, pulse 70, respiratory rate 18, blood pressure 144/90 and pulse ox 96%. HEENT: Head normocephalic, atraumatic. Eyes: Extraocular muscles are intact. Pupils are equal, round and reactive to light and accommodation. Ears: No lesions. Nose appeared normal. Throat: No exudate or erythema. NECK: Supple. No JVD, no carotid bruit. No lymphadenopathy or thyromegaly. LUNGS: Decreased breath sounds but clear to auscultation. Percussion note normal. Chest symmetrical. HEART: S1, S2, no S3. No murmurs. No cyanosis or clubbing. No ascites. Pulses: Dorsalis pedis and posterior tibial pulses +1 to +2 both sides. ABDOMEN: Soft. Nontender. Bowel sounds active. No CVA tenderness. No mass felt. EXTREMITIES: No edema. Full range of motion of all extremities, equal. NEUROLOGIC: No focal deficit. Cranial nerves II through XII are grossly intact. No headache, no double vision or headache. SKIN: Not dry. Intact. Turgor - normal. LYMPHATIC: No palpable lymph nodes/no lymphedema. MUSCULOSKELETAL: Normal joints with no swelling. Muscle tone is normal. LABS: Hgb 12, hct 35, WBC 5,600, potassium 3.1. ASSESSMENT: 1. Flu type of symptoms with bronchitis seems to be resolving 2. Pleuritic pain resolved 3. Cardiovascular status stable 4. Obese, advised to lose weight and exercise on regular basis PLAN: 1. Potassium is 3.1 will given K-Tab 20meq three times a day for 5 days. 2. The patient to be discharged home TIME SPENT: More than 30 minutes. Plan and coordination of the patient's care discussed in the presence of nurse. EDER
--- NOTE | 2017-06-30 10:29 | DS ---
DATE OF SERVICE: 06/25/17 FINAL DIAGNOSIS: 1. Acute pneumonitis 2. Influenza A 3. Pleuritic chest pain 4. Diabetes, Type 2 5. Hypertension 6. Dyslipidemia 7. GERD 8. Chronic kidney disease, stage 2 9. Rheumatoid arthritis 10.Bilateral total knee replacement 11.Right shoulder replacement 12.Cholecystectomy LAST VITALS: Temperature 97.9, pulse 70, respiratory rate 18, blood pressure 144/89 and pulse ox 96%. DISCHARGE INSTRUCTIONS: Discharge home. Continue home medications as listed on nursing discharge information sheet, except do not take your home potassium for now. Continue to check blood sugars at least twice daily. An appointment is scheduled with Dr. Card/Ewa Carbajal APRN. MEDICATIONS AT DISCHARGE: Aspirin 81mg PO daily Chromium Picolinate 300mcg PO QPM Ziac (2.5-6.25) 0.5 tablet PO QPM Lasix 20mg PO QDAC Amaryl 2mg PO QPM Antivert 25mg PO QAM Glucophage 500mg PO twice a day Myrbetriq 25mg PO QPM Potassium Fluconate 600mg PO twice a day Nexium 40mg PO QPM Pravachol 20mg PO bedtime Januvia 100mg PO daily Micardis -HCT 80-12.5mg PO daily Calan SR 120mg PO bedtime Calan SR 240mg PO daily [place] 3 one capsule twice a day Centrum Silver one PO at bedtime ALLERGIES: Clindamycin Erythromycin Meperidine Penicillins NEW PRESCRIPTIONS: K-Tab 20 meq three times a day for 3 days, then resume previous Potassium Gluconate Prednisone 20mg daily for three days, then 10mg daily for 3 days Mucinex 600mg twice a day (may obtain over the counter) DIET INSTRUCTIONS: Consistent Carbohydrates, increase fluids ACTIVITY: Gradually resume as tolerated. Please stay indoors until seen next Thursday in the office. Avoid crowds. Rest. SMOKING: N/A DISEASE SPECIFIC EDUCATION: Steroids, short term use and risk of GI irritations Influenza A Blood sugar increase while on steroids Hydration, rest HOSPITAL COURSE: 82 year old white female hospitalized with flu type of symptoms with pneumonitis , pleuritic pain, chest tightness. The patient's condition improved with steroids, antibiotics, NEBS treatment. The patient was echo was normal. Cardiac markers and EKG were practically normal and unchanged. The patient got 500mg of Azithromax everyday, the third dose was on the day of discharge so she was discharged on Steroids, Prednisone 20mg to be taken three days and 10mg to be taken three days. She was advised to increase her activity. Effects of steroids discussed with avascular necrosis of femoral heads and osteoporosis. CONDITION: Stable. TIME SPENT: More than 60 minutes. MTDD
--- NOTE | 2017-06-30 10:30 | PN ---
06/23/17: Level 5 06/24/17: Intermediate 06/25/17: D as in discharge MTDD
== END 2017-06-25 11:25 | disposition home or self-care (01) | DRG 195 ==
LOC: MEDSURG A 14:56
PROVIDERS: ADMIT Internal Medicine; ATTEND Internal Medicine
DX: J18.9 Pneumonia, unspecified organism (principal); J10.1 Influenza due to other identified influenza virus with other respiratory manifestations; R07.81 Pleurodynia; R06.02 Shortness of breath; I12.9 Hypertensive chronic kidney disease with stage 1 through stage 4 chronic kidney disease, or unspecified chronic kidney disease; E11.22 Type 2 diabetes mellitus with diabetic chronic kidney disease; N18.2 Chronic kidney disease, stage 2 (mild); I51.7 Cardiomegaly; I10 Essential (primary) hypertension; E66.9 Obesity, unspecified; M06.9 Rheumatoid arthritis, unspecified; E78.5 Hyperlipidemia, unspecified; K21.9 Gastro-esophageal reflux disease without esophagitis; Z79.84 Long term (current) use of oral hypoglycemic drugs; Z79.899 Other long term (current) drug therapy
CPT/HCPCS: 36415; 80053; 81001; 82550; 82553; 82962; 83036; 84484; 85025; 87502; 87651; 93005; 93010; 94640; 97802

== ENCOUNTER 2017-07-29 18:27 | Outpatient (CLI) | END 2017-07-29 18:28 | disposition short-term general hospital (02) | LOC: AMBL 18:27 | PROVIDERS: ATTEND Internal Medicine | DX: R07.9 Chest pain, unspecified (principal); R20.0 Anesthesia of skin; M79.602 Pain in left arm; E11.9 Type 2 diabetes mellitus without complications; R06.02 Shortness of breath; I10 Essential (primary) hypertension; I48.91 Unspecified atrial fibrillation; R53.1 Weakness ==

== ENCOUNTER 2017-11-09 08:47 | Outpatient (CLI) ==
--- NOTE | 2017-11-09 10:06 | CT ---
Exam: CT abdomen pelvis without intravenous contrast. Comparison: 05/12/2014. Reason for exam: Diarrhea. FINDINGS: Mild basilar atelectasis. The heart appears prominent in size. The gallbladder has been removed. Image interpretation is limited by the lack of intravenous contrast administration. The splenic parenchyma, and adrenal glands appear grossly unremarkable. There is fatty infiltration of the pancreas without ductal dilatation. 2.6 cm hypodensity is seen in the inferior right renal pole. No hydronephrosis, hydroureter, or neph rolithiasis. The bladder is incompletely evaluated secondary to non distension. No focal small bowel dilatation or transition point. The appendix is unremarkable. Diverticular disease is seen in the rectosigmoid without surrounding inflammatory change. No intra-abdominal free air or pelvic free fluid. Degenerative disease is seen in the lumbosacral spine with intervertebral body disc space height loss and facet hypertrophy. Impression: 1. No acute inflammatory findings are seen within the abdomen or pelvis. 2. Right renal hypodensity is statistically a cyst. Ultrasound may be performed for further charact erization. 3. Diverticulosis without diverticulitis. 4. Moderate to marked degenerative disease in the lumbosacral spine and pelvis. 5. Cardiomegaly
== END 2017-11-09 08:48 | disposition home or self-care (01) ==
LOC: RAD 08:47
PROVIDERS: ATTEND Internal Medicine
DX: R19.7 Diarrhea, unspecified (principal)

== ENCOUNTER 2017-12-18 08:17 | Outpatient (CLI) ==
--- NOTE | 2017-12-18 09:07 | US ---
EXAM: Renal ultrasound HISTORY: Right renal cyst COMPARISON: CT abdomen pelvis 11/09/2017 TECHNIQUE: Sonographic evaluation of the kidneys was performed with limited Doppler evaluation. FINDINGS: The right kidney measures 9.7 x 4.0 x 3.7 cm with renal cortical thickness of 1.0 cm. The re is normal echogenicity and color Doppler flow. There is questionable hyperechoic stone in the midp ole. There is a 2.6 x 1.8 x 2.0 cm inferior anechoic cyst. The left kidney measures 10.6 x 4.7 x 4.5 cm with renal cortical thickness of 0.8 cm. There is an l echogenicity and color Doppler flow. No stone or hydronephrosis is identified. Limited evaluation of the urinary bladder is limited due to bowel gas. IMPRESSION: 1. Right renal cyst. 2. Questionable right nonobstructing renal stone.
== END 2017-12-18 08:18 | disposition home or self-care (01) ==
LOC: RAD 08:17
PROVIDERS: ATTEND Internal Medicine
DX: N28.1 Cyst of kidney, acquired (principal)

== ENCOUNTER 2017-12-28 06:34 | Outpatient (CLI) ==
--- NOTE | 2017-12-28 09:31 | STRESSMOD ---
Date of Test: 12/28/17 Ordering Physician: DR. CRISTÓBAL DOS SANTOS Occupation:RETIRED Reason for Exam: SOB, HTN Smoking History: Height: 66" Weight: 202 LBS Current Medications: VERAPAMIL, MICARDIS, JANUVIA, PRAVACHOL, METFORMIN, AMARYL Target Heart Rate: 115/136 Resting EKG: SINUS RHYTHM/ NO ACUTE CHANGES S-T SEGMENT STAGE MPH/GRADE HEART RATE BPM BLOOD PRESSURE mmhg RHYTHM +/- ELEVATION DEPRESSION SYMPTOMS,COMMENTS At Rest 60 152/86 SR X NONE 1 1.7/0% 90 160/82 SR X NONE 2 1.7/5% 3 1.7/10% 4 2.5/12% 5 3.4/14% Immediately After 100 SR X SHORT OF BREATH Minutes Post Exercise 4:00 80 150/88 SR X NO COMMENTS Minutes Post Exercise DURATION OF EXERCISE: 2:36 MAXIMUM HEART RATE REACHED: 100 REASON FOR TERMINATION: SHORT OF BREATH 97% OXYGEN SATURATION WITH EXERCISE ON ROOM AIR INTERPRETATION: 1. NO EVIDENCE OF ISCHEMIA FROM RESTING HEART RATE 60 BPM TO 100 BPM WITH EXERCISE 2. NO CHEST PAIN OR DISCOMFORT 3. NO ARRHYTHMIAS 4. BLOOD PRESSURE RESPONSE ADEQUATE NORMAL LEFT VENTRICULAR CONTRACTILITY--RESTING AND POST EXERCISE MTDD
--- NOTE | 2017-12-28 09:33 | ECHOSTRESS ---
Date of Exam: 12/28/17 Ordering Physician: DR. CRISTÓBAL DOS SANTOS Reason for Echo: SOB, HTN, STRESS TEST--NO ISCHEMIA M-Mode Normal Adult Results LV Dimensions Normal Adult Results AoV Opening excursions >1.6 LVEDD-base- 3.5-5.8 Ao root dimensions 2.0-3.7 LVESD-base- 3.1-4.6 L. Atrium dimensions 1.9-3.8 Post. Wall thickness 0.8-1.1 IV septum (thickness) 0.7-1.2 Post. Wall excursion 0.72-1.3 Septal motion Systolic motion R. Ventricular cavity 1.5-2.0 LVEF 60% Paradoxical septal wall motion 2-D: NORMAL LEFT VENTRICULAR CONTRACTILITY--RESTING AND POST EXERCISE M-MODE: MV: AV: TV: PV: CHAMBER SIZE: WALL MOTION: NORMAL LEFT VENTRICULAR CONTRACTILITY--RESTING AND POST EXERCISE PERICARDIUM: INTERPRETATION: 1. NORMAL LEFT VENTRICULAR CONTRACTILITY--RESTING AND POST EXERCISE MTDD
== END 2017-12-28 06:35 | disposition home or self-care (01) ==
LOC: CAR 06:34
PROVIDERS: ATTEND Internal Medicine
DX: R06.02 Shortness of breath (principal); I10 Essential (primary) hypertension

== ENCOUNTER 2018-01-11 09:04 | Outpatient (CLI) | END 2018-01-11 09:05 | disposition home or self-care (01) | LOC: LAB 09:04 | PROVIDERS: ATTEND Internal Medicine | DX: K92.1 Melena (principal); I47.2 Ventricular tachycardia | CPT/HCPCS: 36415; 80053; 82272; 85025 ==

== ENCOUNTER 2018-02-10 12:56 | Outpatient (CLI) | END 2018-02-10 12:57 | disposition home or self-care (01) | LOC: LAB 12:56 | PROVIDERS: ATTEND Internal Medicine | DX: K92.1 Melena (principal) | CPT/HCPCS: 82272 ==

== ENCOUNTER 2018-08-14 12:29 | Emergency (ER) ==
[2018-08-14 12:39] VITALS: BP 142/73; TEMP 99.2; BMI 32.9
--- NOTE | 2018-08-14 14:05 | ED.PDOC ---
General ED Provider: Dr. ES KELLER Chief Complaint: Extremity Swelling/Pain Stated Complaint: Pain Lt Wrist with Swelling. Better now Time Seen by Physician: 12:45 Mode of Arrival: Walk-In Information Source: Patient Exam Limitations: No limitations Primary Care Provider: CRISTÓBAL DOS SANTOS Nursing and Triage Documentation Reviewed and Agree: Yes Does patient meet sepsis criteria?: No System Inflammatory Response Syndrome: Not Applicable Sepsis Protocol: For patient's 13 years and over: Temp is 96.8 and below OR 101 and greater Pulse >90 BPM Resp >20/minute Acutely Altered Mental Status Are patient's symptoms suggestive of a new infection, such as: -Pneumonia -Skin, Soft Tissue -Endocarditis -UTI -Bone, Joint Infection -Implantable Device -Acute Abdominal Infection -Wound Infection -Meningitis -Blood Stream Catheter Infection -Unknown Musculoskeletal Complaint Exam - Hand/Wrist Complaint/Exam Location of Pain: Reports: Left, Wrist Mechanism of Injury: Reports: No known trauma Review of Systems - Review Of Systems Constitutional: Reports: No symptoms Eyes: Reports: No symptoms Ears, Nose, Mouth, Throat: Reports: No symptoms Respiratory: Reports: No symptoms Cardiac: Reports: No symptoms GI: Reports: No symptoms : Reports: No symptoms Musculoskeletal: Reports: No symptoms Skin: Reports: No symptoms Neurological: Reports: No symptoms Endocrine: Reports: No symptoms Hematologic/Lymphatic: Reports: No symptoms All Other Systems: Reviewed and Negative Past Medical History - Past Medical History Endocrine: Reports: DM 2 Cardiovascular: Reports: Hypertension Respiratory: Reports: None Hematological: Reports: None Gastrointestinal: Reports: None Genitourinary: Reports: None Neuro/Psych: Reports: CVA Musculoskeletal: Reports: Arthritis Cancer: Reports: None Last Menstrual Period: na - Surgical History General Surgical History: Reports: Hysterectomy, Cholecystectomy, Orthopedic ( Bilatearl Knee replacement, Right shoulder replacement ) - Family History Family History: Reports: Unknown - Social History Smoking Status: Never smoker Hx Substance Use: No Alcohol Screening: None - Immunizations Tetanus Shot up to Date: Yes Physical Exam - Physical Exam Appearance: Well-appearing, No pain distress, Well-nourished Eyes: BELLE, EOMI, Conjunctiva clear ENT: Ears normal, Nose normal, Oropharynx normal Respiratory: Airway patent, Breath sounds clear, Breath sounds equal, Respirations nonlabored Cardiovascular: RRR, Pulses normal, No rub, No murmur GI/: Soft, Nontender, No masses, Bowel sounds normal, No Organomegaly Musculoskeletal: Normal strength, ROM intact, No edema, No calf tenderness Skin: Warm, Dry, Normal color Neurological: Sensation intact, Motor intact, Reflexes intact, Cranial nerves intact, Alert, Oriented Psychiatric: Affect appropriate, Mood appropriate Re-Evaluation - Re-Evaluation Time of Re-Evaluation: 13:40 Status: Improved Vital Signs Stable: Yes Appearance: NAD Lungs: Clear Skin: Warm and Dry Neuro: Alert and Oriented X3 CV: RRR Critical Care Note - Critical Care Note Total Time (mins): 0 Course - Course Hematology/Chemistry: 08/14/18 14:15 08/14/18 14:15 Orders, Labs, Meds: Lab Review 08/14/18 08/14/18 14:15 14:15 WBC 8.03 RBC 4.70 Hgb 13.2 Hct 39.9 MCV 84.9 MCH 28.1 MCHC 33.1 RDW Coeff of Chuy 13.3 Plt Count 159 Immature Gran % (Auto) 0.1 Neut % (Auto) 68.8 Lymph % (Auto) 21.2 Shannon % (Auto) 9.5 Eos % (Auto) 0.0 Baso % (Auto) 0.4 Immature Gran # (Auto) 0.0 Neut # (Auto) 5.5 Lymph # (Auto) 1.7 Shannon # (Auto) 0.8 Eos # (Auto) 0.0 Baso # (Auto) 0.0 Sodium 136.0 Potassium 3.88 Chloride 99.7 Carbon Dioxide 26.6 Anion Gap 13.58 BUN 13.9 Creatinine 0.79 Estimated GFR (MDRD) 69.00 BUN/Creatinine Ratio 17.59 Glucose 96.8 Calcium 9.07 Total Bilirubin 0.98 AST 34.3 ALT 30.2 Alkaline Phosphatase 56.1 Total Protein 6.74 Albumin 4.35 Globulin 2.39 Albumin/Globulin Ratio 1.82 Orders Category Date Time Status EKG-(ED ONLY) Stat CARDIO 08/14/18 13:53 Completed CBC W/ AUTO DIFF Stat LAB 08/14/18 14:15 Completed COMPREHENSIVE METABOLIC PANEL Stat LAB 08/14/18 14:15 Completed WRIST, LEFT 3 VIEWS Stat RADS 08/14/18 14:01 Completed Vital Signs: Temp Pulse Resp BP Pulse Ox 08/14/18 12:30 99.2 F 70 16 142/73 H 96 Departure - Departure Time of Disposition: 15:20 Disposition: HOME SELF-CARE Discharge Problem: Arthritis pain of wrist Instructions: Arthralgia (ED) Condition: Good Pt referred to PMD for follow-up: Yes IPMP verified?: No Additional Instructions: Ice alternating with warm most heat Avoid aggravating activities anallgesics for relief of discomfort Allergies/Adverse Reactions: Allergies clindamycin Adverse Reaction (Verified 08/14/18 12:43) erythromycin base [Erythromycin Base] Adverse Reaction (Verified 08/14/18 12:43) meperidine HCl [From Demerol] Adverse Reaction (Verified 08/14/18 12:43) Penicillins Adverse Reaction (Verified 08/14/18 12:43) Home Medications: Ambulatory Orders Esomeprazole Magnesium [Nexium] 40 mg PO QPM 07/05/13 Glimepiride [Amaryl] 4 mg PO QPM 07/05/13 Metformin HCl [Metformin HCl ER] 500 mg PO BID 07/05/13 Sitagliptin Phosphate [Januvia] 100 mg PO DAILY 07/05/13 Vit C/Vit E/Lutein/Min/[place]-3 [Ocuvite Softgel] 1 tab PO DAILY 07/05/13 Meclizine HCl [Antivert] 25 mg PO QAM 12/28/14 Pravastatin Sodium [Pravachol] 20 mg PO BEDTIME 12/28/14 Telmisartan/Hydrochlorothiazid [Micardis Hct 80-12.5 mg Tablet] 1 tab PO QAM Verapamil HCl [Verapamil ER] 240 mg PO DAILYWM 12/29/14 Furosemide [Lasix Tab] 20 mg PO DAILY 06/07/16 [place]-3 Fatty Acids/Fish Oil [Fish Oil 1,000 mg Capsule] 1 each PO BID 06/07/16 Verapamil HCl [Verapamil ER] 120 mg PO BEDTIME 06/07/16 Mirabegron [Myrbetriq] 50 mg PO QPM 06/24/17 Disposition Discussed With: Patient, Family
--- NOTE | 2018-08-15 08:09 | DI ---
EXAM: Left wrist; PA, lateral, and oblique views HISTORY: Wrist pain COMPARISON: None FINDINGS: There is no acute fracture or dislocation. Advanced joint space narrowing with marginal os teophytosis is seen at the first carpometacarpal joint. Mild radiocarpal joint space narrowing is ventura ggested. Joint space narrowing is seen at the scaphoid trapezium joint. The bones appear osteopenic . Advanced interphalangeal joint space narrowing with prominent marginal osteophytes are seen. Ather osclerosis is present. OPINION: No acute osseous abnormality of the wrist. 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
== END 2018-08-14 15:40 | disposition home or self-care (01) ==
LOC: ED 12:29
DX: M25.532 Pain in left wrist (principal); E11.9 Type 2 diabetes mellitus without complications; I10 Essential (primary) hypertension; Z79.899 Other long term (current) drug therapy; Z86.73 Personal history of transient ischemic attack (TIA), and cerebral infarction without residual deficits
CPT/HCPCS: 36415; 80053; 85025; 93005; 93010; 99283